=== PATIENT | female | born 1990 | race Caucasian/White ===

== ENCOUNTER 2023-07-29 08:00 | Day surgery (SDC) | payer OTHER ==
[2023-07-29] MEDS: FERRIC CARBOXYMALTOSE 750 MG in SODIUM CHLORIDE 250 ML IVPB ONE (09:13)
[2023-07-29 15:05] VITALS: BP 120/80; PULSE 93; RESP 20; TEMP 99.2
== END 2023-07-29 10:25 | disposition home or self-care (01) ==
LOC: JONCNONCHE 08:00 → J7W 08:00 → JONCNONCHE 10:25
PROVIDERS: ATTEND Internal Medicine Hematology & Oncology
DX: D50.9 Iron deficiency anemia, unspecified (principal)
CPT/HCPCS: 96365; J1439

== ENCOUNTER 2023-08-05 08:30 | Day surgery (SDC) | payer OTHER ==
[2023-08-05 08:51] VITALS: PULSE 74; RESP 18; TEMP 98.6
[2023-08-05] MEDS: FERRIC CARBOXYMALTOSE 750 MG in SODIUM CHLORIDE 250 ML IVPB ONE (09:12)
[2023-08-05 09:59] VITALS: BP 109/74
== END 2023-08-05 10:15 | disposition home or self-care (01) ==
LOC: JONCNONCHE 08:30 → J7W 08:31 → JONCNONCHE 10:15
PROVIDERS: ATTEND Internal Medicine Hematology & Oncology
PROC: 3E033GC Introduction of Other Therapeutic Substance into Peripheral Vein, Percutaneous Approach (ICD-10-PCS; principal; 2023-08-05)
DX: D50.9 Iron deficiency anemia, unspecified (principal)
CPT/HCPCS: 96365; J1439

== ENCOUNTER 2024-03-14 04:21 | Day surgery (SDC) | payer OTHER ==
[2024-03-09 17:45] VITALS: BMI 35.6
[2024-03-14] MEDS ORDERED: KETOROLAC TROMETHAMINE 30 MG/1 ML VIAL ONE (11:19)
[2024-03-14] MEDS ORDERED: LIDOCAINE HCL/PF 2% SDV 5ML VIAL ONE (11:19)
[2024-03-14] MEDS ORDERED: ONDANSETRON 4 MG/2 ML VIAL ONE (11:19)
[2024-03-14] MEDS ORDERED: DEXAMETHASONE SOD PHOSPHATE 4 MG/1 ML VIAL ONE (11:19)
[2024-03-14] MEDS ORDERED: SUCCINYLCHOLINE CHLORIDE 200 MG/10 ML SYRINGE ONE (11:24)
[2024-03-14] MEDS ORDERED: MIDAZOLAM HCL 2 MG/2 ML SINGLE DOSE VIAL ONE (11:25)
[2024-03-14] MEDS ORDERED: ESMOLOL HCL 100,000 MCG/10 ML VIAL ONE (11:36)
[2024-03-14] MEDS ORDERED: SEVOFLURANE 250 ML BTL ONE (11:44)
[2024-03-14] MEDS: LACTATED RINGERS SOLUTION 1,000 ML IV SCH (12:55)
[2024-03-14] MEDS ORDERED: oxyCODONE HCL 5 MG TABLET PO PRN (12:57)
[2024-03-14] MEDS ORDERED: ONDANSETRON 4 MG/2 ML VIAL IVPUSH PRN (12:57)
[2024-03-14 14:56] VITALS: RESP 18
[2024-03-14 17:13] VITALS: BP 116/71; PULSE 85; TEMP 98
== END 2024-03-14 16:20 | disposition home or self-care (01) ==
LOC: JASU-SURG 04:21
PROVIDERS: ATTEND Obstetrics & Gynecology
PROC: 0UB98ZZ Excision of Uterus, Via Natural or Artificial Opening Endoscopic (ICD-10-PCS; principal; 2024-03-14 11:00)
DX: N84.0 Polyp of corpus uteri (principal); N93.9 Abnormal uterine and vaginal bleeding, unspecified
CPT/HCPCS: 81025; 86850; 86900; 86901; 88305-TC; 94760

== ENCOUNTER 2024-04-06 08:53 | Day surgery (SDC) | payer OTHER ==
[2024-04-06] MEDS: FERRIC CARBOXYMALTOSE 750 MG in SODIUM CHLORIDE 250 ML IVPB ONE (09:10)
[2024-04-06 14:56] VITALS: RESP 16; TEMP 98.7
[2024-04-06 15:00] VITALS: BP 110/67; PULSE 79
== END 2024-04-06 10:15 | disposition home or self-care (01) ==
LOC: JONCNONCHE 08:53 → J7W 08:56 → JONCNONCHE 10:15
PROVIDERS: ATTEND Internal Medicine Hematology & Oncology
PROC: 3E033GC Introduction of Other Therapeutic Substance into Peripheral Vein, Percutaneous Approach (ICD-10-PCS; principal; 2024-04-06)
DX: D50.9 Iron deficiency anemia, unspecified (principal)
CPT/HCPCS: 96365; J1439

== ENCOUNTER 2024-04-13 10:31 | Day surgery (SDC) | payer OTHER ==
[2024-04-13] MEDS: FERRIC CARBOXYMALTOSE 750 MG in SODIUM CHLORIDE 250 ML IVPB ONE (09:50)
[2024-04-13 13:57] VITALS: BP 123/84; PULSE 84; RESP 20; TEMP 98
== END 2024-04-13 10:55 | disposition home or self-care (01) ==
LOC: JONCCHEMO 10:31 → J7W 10:32 → JONCCHEMO 10:55
PROVIDERS: ATTEND Internal Medicine Hematology & Oncology
PROC: 3E033GC Introduction of Other Therapeutic Substance into Peripheral Vein, Percutaneous Approach (ICD-10-PCS; principal; 2024-04-13)
DX: D50.0 Iron deficiency anemia secondary to blood loss (chronic) (principal)
CPT/HCPCS: 96365; J1439

== ENCOUNTER 2024-08-06 08:45 | Day surgery (SDC) | payer OTHER ==
[2024-08-06] MEDS: FERRIC CARBOXYMALTOSE 750 MG in SODIUM CHLORIDE 250 ML IVPB ONE (09:09)
[2024-08-06 10:01] VITALS: RESP 18; TEMP 98.8
[2024-08-06 10:03] VITALS: BP 114/81; PULSE 74
== END 2024-08-06 10:10 | disposition home or self-care (01) ==
LOC: JONCNONCHE 08:45 → J7W 08:46 → JONCNONCHE 10:10
PROVIDERS: ATTEND Internal Medicine Hematology & Oncology
PROC: 3E033GC Introduction of Other Therapeutic Substance into Peripheral Vein, Percutaneous Approach (ICD-10-PCS; principal; 2024-08-06)
DX: D50.9 Iron deficiency anemia, unspecified (principal)
CPT/HCPCS: 96365; J1439

== ENCOUNTER 2024-08-13 08:26 | Day surgery (SDC) | payer OTHER ==
[2024-08-13] MEDS: FERRIC CARBOXYMALTOSE 750 MG in SODIUM CHLORIDE 250 ML IVPB ONE (09:12)
[2024-08-13 09:38] VITALS: RESP 18; TEMP 98.2
[2024-08-13 10:14] VITALS: BP 122/74; PULSE 76
== END 2024-08-13 10:15 | disposition home or self-care (01) ==
LOC: JONCNONCHE 08:26 → J7W 08:28 → JONCNONCHE 10:15
PROVIDERS: ATTEND Internal Medicine Hematology & Oncology
PROC: 3E033GC Introduction of Other Therapeutic Substance into Peripheral Vein, Percutaneous Approach (ICD-10-PCS; principal; 2024-08-13)
DX: D50.9 Iron deficiency anemia, unspecified (principal)
CPT/HCPCS: 96365; J1439

== ENCOUNTER 2024-12-14 07:55 | Day surgery (SDC) | payer OTHER ==
[2024-12-14] MEDS: FERRIC CARBOXYMALTOSE 750 MG in SODIUM CHLORIDE 250 ML IVPB ONE (08:30)
[2024-12-14 13:58] VITALS: RESP 18; TEMP 98.6
[2024-12-14 14:00] VITALS: BP 102/73; PULSE 80
== END 2024-12-14 09:30 | disposition home or self-care (01) ==
LOC: JONCCHEMO 07:55 → J7W 08:24 → JONCCHEMO 09:30
PROVIDERS: ATTEND Internal Medicine Hematology & Oncology
PROC: 3E033GC Introduction of Other Therapeutic Substance into Peripheral Vein, Percutaneous Approach (ICD-10-PCS; principal; 2024-12-14)
DX: D50.9 Iron deficiency anemia, unspecified (principal)
CPT/HCPCS: 96365; J1439